=== PATIENT | male | born 1960 | race African-American/Black ===

== ENCOUNTER 2016-10-31 11:23 | Observation (INO) | payer OTHER ==
[2016-10-31 11:38] VITALS: BMI 29.5
[2016-10-31 12:12] LABS: BASOPHIL 0.8 % (0-2.0); EOSINOPHIL 0.8 % (0-4.5); MCH 29.8 pg (25.7-33.7); MCHC 32.8 g/dl (32.0-35.9); MEAN PLT VOLUME 8.1 fl (7.5-11.1); NEUTROPHILS 70.2 % (42.8-82.8); PLATELET COUNT 239 K/MM3 (134-434); RDW 12.7 % (11.9-15.9); WHITE BLOOD COUNT 4.9 K/mm3 (4.0-10.0)
[2016-10-31] MEDS ORDERED: ASPIRIN 325 MG TABLET PO ONE (12:15)
--- NOTE | 2016-10-31 12:19 | PDOC ---
History of Present Illness <Hanna Barajas - Last Filed: 10/31/16 12:53> <Eliezer Warren - Last Filed: 11/04/16 09:19> - General Chief Complaint: Chest Pain Stated Complaint: CHEST PAIN Time Seen by Provider: 10/31/16 11:40 Past History - Past Medical History HTN: Yes - Psycho/Social/Smoking Cessation Hx Suicidal Ideation: No Smoking History: Current some day smoker Have you smoked in the past 12 months: No Information on smoking cessation initiated: No <Hanna Barajas - Last Filed: 10/31/16 12:53> <Eliezer Warren - Last Filed: 11/04/16 09:19> - Past Medical History Allergies/Adverse Reactions: Allergies Allergy/AdvReac Type Severity Reaction Status Date / Time No Known Allergies Allergy Verified 10/31/16 11:32 Home Medications: Ambulatory Orders Aspirin Coated [Ecotrin -] 81 mg PO DAILY #30 tablet.ec 11/03/16 Atorvastatin Ca [Lipitor] 10 mg PO HS #30 tablet 11/03/16 Carvedilol [Coreg -] 12.5 mg PO BID #30 tablet 11/03/16 Valsartan [Diovan] 320 mg PO DAILY #30 tablet 11/03/16 - Vital Signs Last Vital Signs Temp Pulse Resp BP Pulse Ox 97.5 F L 73 19 124/81 97 11/03/16 18:00 11/03/16 18:00 11/03/16 18:00 11/03/16 18:00 11/03/16 09:00 Heart Score/ECG Review - History History: Highly suspicious - Electrocardiogram EKG: Normal - Age Age: 45-65 - Risk Factors Risk Factors Heart Score: Yes Hx Hypertension Based on the list above the patient has:: 1-2 risk factors - Troponin Troponin: </= normal limit - Score Heart Score - Total: 4 <Hanna Barajas - Last Filed: 10/31/16 12:53> <Eliezer Warren - Last Filed: 11/04/16 09:19> - ECG Intrepretation Comment:: 10/31/16 12:21 Twelve-lead EKG was performed and reviewed by me. There is normal sinus rhythm with a normal rate. The intervals are normal. There are no ST or T wave abnormalities. There is some LVH Impression: LVH, otherwise normal twelve-lead EKG (KarlHanna) ED Treatment Course - LABORATORY CBC & Chemistry Diagram: 10/31/16 11:55 10/31/16 11:55 <Hakeem BarajasCynthia - Last Filed: 10/31/16 12:53> - LABORATORY CBC & Chemistry Diagram: 11/03/16 05:35 11/03/16 05:35 <KelvinEliezer britton - Last Filed: 11/04/16 09:19> - ADDITIONAL ORDERS Additional order review: 10/31/16 11:55 RBC 4.23 MCV 91.0 MCHC 32.8 RDW 12.7 MPV 8.1 Neutrophils % 70.2 Lymphocytes % 20.4 Monocytes % 7.8 Eosinophils % 0.8 Basophils % 0.8 - Medications Given in the ED: ED Medications Discontinued Medications Generic Name Dose Route Start Last Admin Trade Name Freq PRN Reason Stop Dose Admin Aspirin 325 mg 10/31/16 12:15 10/31/16 12:36 Asa - PO 10/31/16 12:16 325 mg ONCE ONE Administration Aspirin 81 mg 11/01/16 10:00 11/03/16 15:28 Ecotrin - PO 81 mg DAILY RADHA Administration Atorvastatin Calcium 20 mg 10/31/16 22:00 11/01/16 22:36 Lipitor - PO 20 mg HS RADHA Administration Atorvastatin Calcium 10 mg 11/02/16 22:00 11/02/16 22:45 Lipitor - PO 10 mg HS RADHA Administration Carvedilol 6.25 mg 10/31/16 17:00 11/01/16 22:36 Coreg - PO 6.25 mg BID RADHA Administration Carvedilol 12.5 mg 11/01/16 17:20 11/01/16 17:30 Coreg - PO 11/01/16 17:21 12.5 mg ONCE ONE Administration Carvedilol 12.5 mg 11/02/16 10:00 11/03/16 15:28 Coreg - PO 12.5 mg BID RADHA Administration Clonidine 0.1 mg 10/31/16 12:21 10/31/16 12:32 Catapres - PO 10/31/16 12:22 0.1 mg ONCE ONE Administration Docusate Sodium 100 mg 10/31/16 22:00 11/03/16 15:28 Colace - PO 100 mg BID RADHA Administration Metoprolol Succinate 25 mg 10/31/16 17:00 10/31/16 17:21 Toprol Xl - PO 25 mg DAILY RADHA Administration Valsartan 80 mg 11/01/16 10:00 11/01/16 09:05 Diovan - PO 80 mg DAILY RADHA Administration Valsartan 160 mg 11/02/16 10:00 11/02/16 10:33 Diovan - PO 160 mg DAILY RADHA Administration Valsartan 320 mg 11/03/16 11:15 11/03/16 15:28 Diovan - PO 160 mg DAILY RADHA Administration Medical Decision Making <Hanna Barajas - Last Filed: 10/31/16 12:53> <Eliezer Warren - Last Filed: 11/04/16 09:19> - Medical Decision Making 10/31/16 12:16 55-year-old male, history of hypertension, non-compliant with medication, presenting with chest pain. Patient reports while at work this a.m, developed sudden onset, sharp, non-radiating chest pain that lasted for an hour and was worse with exertion. Also reports shortness of breath and nausea, vomiting that occurred w/ CP. States symptoms have since resolved. Patient states he had similar chest pain in 2010 and was admitted to [facility] and had negative stress test then. Denies palpitations, leg pain or swelling and no obvious risk factors for DVT/PE See exam CP Highly concerning for ACS RF age/HTN Neg stress in 2010 BP significantly elevated in ED (non-complaint w/ meds), otherwise stable w/ unremarkable exam -asa -BP management -ekg -cxr -labs -m/l admit to Obs for am stress given heart score 10/31/16 12:22 10/31/16 12:49 EKG w/ LVH. CXR and labs negative. Will contact hospitalist and admit 10/31/16 12:53 Case d/w hospitalist and pt admitted (Hanna Barajas) 11/04/16 09:19 The patient was seen and evaluated in conjunction with BOYD Angeles under my direct supervision, ancillary studies were reviewed. I agree with the plan as outlined by OBYD Barajas . (Eliezer Warren) *DC/Admit/Observation/Transfer - Discharge Dispostion Admit: Yes <Hanna Barajas - Last Filed: 10/31/16 12:53> <Eliezer Warren - Last Filed: 11/04/16 09:19> Diagnosis at time of Disposition: Chest pain Qualifiers: Chest pain type: unspecified Qualified Code(s): R07.9 - Chest pain, unspecified - Discharge Dispostion Disposition: HOME Condition at time of disposition: Good - Prescriptions - Referrals Addendum entered and electronically signed by Hanna Barajas PA 02/10/17 17:22 : Physical Exam Vital Sings: Vital Signs Temperature 97.5 F L 11/03/16 18:00 Pulse Rate 73 11/03/16 18:00 Respiratory Rate 19 11/03/16 18:00 Blood Pressure 124/81 11/03/16 18:00 O2 Sat by Pulse Oximetry (%) 97 11/03/16 09:00 Constitutional: Yes: Well Nourished. No: No Distress Eyes: Yes: EOM Intact HENT: Yes: WNL Neck: Yes: Supple Cardiovascular: Yes: Regular Rate and Rhythm, S1, S2 Respiratory: Yes: CTA Bilaterally Gastrointestinal: Yes: Soft. No: Tenderness (L) Integumentary: Yes: WNL Neurological: Yes: Alert, Oriented Labs: CBC, BMP 10/31/16 11:55 10/31/16 11:55 Addendum entered and electronically signed by Hanna Barajas PA 02/10/17 17:24 : Progress Note - Progress Note Progress Note: GENERAL/CONSTITUTIONAL: no f/c or malaise HEAD, EYES, EARS, NOSE AND THROAT: [No ear pain or discharge. No sore throat.] CARDIOVASCULAR: +chest pain, +sob RESPIRATORY: [No cough, wheezing, or hemoptysis.] GASTROINTESTINAL: [+nausea and vomiting, diarrhea or constipation. No rectal bleeding.] GENITOURINARY: [No dysuria, frequency, or change in urination.] MUSCULOSKELETAL: [No joint or muscle swelling or pain. No neck or back pain.] SKIN AND BREASTS: [No rash or easy bruising.] NEUROLOGIC: [No headache, vertigo, loss of consciousness, or loss of sensation.] PSYCHIATRIC: [No depression or anxiety.] ENDOCRINE: [No increased thirst. No abnormal weight change.] HEMATOLOGIC/LYMPHATIC: [No anemia, easy bleeding, or history of blood clots.] ALLERGIC/IMMUNOLOGIC: [No hives or skin allergy. No latex allergy.]
[2016-10-31] MEDS ORDERED: cloNIDine HCL 0.1 MG TABLET PO ONE (12:21)
[2016-10-31] MEDS ORDERED: cloNIDine HCL 0.1 MG TABLET ONE (12:22)
[2016-10-31 12:28] LABS: ANION GAP 9 (8-16); BILIRUBIN,TOTAL 0.3 mg/dL (0.2-1.0); CALCIUM 8.8 mg/dL (8.5-10.1); CO2 29 mmol/L (21-32); CREATININE 0.9 mg/dL (0.7-1.3); GLUCOSE,RANDOM 79 mg/dL (74-106); SGOT/AST 49 U/L (15-37); SGPT/ALT 39 U/L (12-78); TOT PROT 8.1 g/dl (6.4-8.2)
[2016-10-31 12:30] LABS: ALK PHOS 81 U/L (45-117); TROPONIN I < 0.02 ng/ml (0.00-0.05)
[2016-10-31] MEDS ORDERED: ASPIRIN 325 MG ENTERIC COATED TABLET (FP) ONE (12:35)
[2016-10-31] MEDS ORDERED: ACETAMINOPHEN 325 MG TABLET (FP) PO PRN (16:44)
--- NOTE | 2016-10-31 16:48 | HP ---
CHIEF COMPLAINT: Chest pain PCP: [facility] HISTORY OF PRESENT ILLNESS: This is a 55 year old male with a history of HTN and HLD. He does not recall the names of his medications, but states that he stopped taking them about 8 months ago after running out. Today while working, he experienced sudden onset of chest "pressure" with SOB. He vomited twice and was diaphoretic. He does note cough productive of yellow phlegm for the past two days. He denies orthopnea, PND, LE edema, or decreased ET. He reports a negative exercise stress test in 2010. 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 Smoking: Occasional Alcohol: Occasional Drugs: None Family History: Significant for DM on father's side; no history of CAD or early Allergies No Known Allergies Allergy (Verified 10/31/16 11:32) HOME MEDICATIONS: Home Medications Medication Instructions Recorded NK [No Known Home Medication] 10/31/16 REVIEW OF SYSTEMS CONSTITUTIONAL: Absent: fever, chills, diaphoresis, generalized weakness, malaise, loss of appetite, weight change HEENT: Absent: rhinorrhea, nasal congestion, throat pain, throat swelling, difficulty swallowing, mouth swelling, ear pain, eye pain, visual changes CARDIOVASCULAR: See HPI RESPIRATORY: Cough productive of yellow sputum Absent: dyspnea with exertion, orthopnea, wheezing, stridor, hemoptysis GASTROINTESTINAL: Vomiting x 2 Absent: abdominal pain, abdominal distension, diarrhea, constipation, melena, hematochezia GENITOURINARY: Absent: dysuria, frequency, urgency, hesitancy, hematuria, flank pain, genital pain MUSCULOSKELETAL: Absent: myalgia, arthralgia, joint swelling, back pain, neck pain SKIN: Absent: rash, itching, pallor HEMATOLOGIC/IMMUNOLOGIC: Absent: easy bleeding, easy bruising, lymphadenopathy, frequent infections ENDOCRINE: Absent: unexplained weight gain, unexplained weight loss, heat intolerance, cold intolerance NEUROLOGIC: Absent: headache, focal weakness or paresthesias, dizziness, unsteady gait, seizure, mental status changes, bladder or bowel incontinence PSYCHIATRIC: Absent: anxiety, depression, suicidal or homicidal ideation, hallucinations. PHYSICAL EXAMINATION Vital Signs - 24 hr 10/31/16 10/31/16 10/31/16 13:46 14:38 15:46 Temperature 98 F Pulse Rate 86 Pulse Rate [ 75 71 Apical] Respiratory 14 18 18 Rate Blood Pressure 171/98 Blood Pressure 146/90 123/67 [Left Arm] O2 Sat by Pulse 99 97 97 Oximetry (%) GENERAL: Awake, alert, and fully oriented, in no acute distress. HEAD: Normal with no signs of trauma. EYES: Pupils equal, round and reactive to light, extraocular movements intact, sclera anicteric, conjunctiva clear. No lid lag. EARS, NOSE, THROAT: Ears normal, nares patent, oropharynx clear without exudates. Moist mucous membranes. NECK: Normal range of motion, supple without lymphadenopathy, JVD, or masses. LUNGS: Breath sounds equal, clear to auscultation bilaterally. No wheezes, and no crackles. No accessory muscle use. HEART: Regular rate and rhythm, normal S1 and S2 without murmur, rub or gallop. ABDOMEN: Soft, nontender, not distended, normoactive bowel sounds, no guarding, no rebound, no masses. No hepatomegaly or splenomegaly. MUSCULOSKELETAL: Normal range of motion at all joints. No bony deformities or tenderness. No CVA tenderness. UPPER EXTREMITIES: 2+ pulses, warm, well-perfused. No cyanosis. No clubbing. Cap refill <2 seconds. No peripheral edema. LOWER EXTREMITIES: 2+ pulses, warm, well-perfused. No calf tenderness. No peripheral edema. NEUROLOGICAL: Cranial nerves II-XII intact. Normal speech. Normal gait. PSYCHIATRIC: Cooperative. Good eye contact. Appropriate mood and affect. SKIN: Warm, dry, normal turgor, no rashes or lesions noted. ASSESSMENT/PLAN: 55 year old male placed in observation for rule out OR Problem List - Problem (1) Chest pain Assessment/Plan: -Monitor on telemetry -Given ASA 325mg in ED, continue 81mg daily -Serial troponins to rule out OR -Cardiology evaluation requested Code(s): R07.9 - CHEST PAIN, UNSPECIFIED Qualifiers: Chest pain type: unspecified Qualified Code(s): R07.9 - Chest pain, unspecified (2) Hypertension Assessment/Plan: -Patient does not recall usual meds -Was given clonidine 0.1mg in ED -Start Toprol XL 25mg daily Code(s): I10 - ESSENTIAL (PRIMARY) HYPERTENSION (3) Hyperlipidemia Assessment/Plan: -Patient does not recall usual meds -Check lipid profile -Start Atorvastatin 20mg hs Code(s): E78.5 - HYPERLIPIDEMIA, UNSPECIFIED (4) DVT prophylaxis Assessment/Plan: -Low risk (short expected length of stay) -Early ambulation Code(s): [id number] - Visit type - Emergency Visit Emergency Visit: Yes ED Registration Date: 10/31/16 Care time: The patient presented to the Emergency Department on the above date and was hospitalized for further evaluation of their emergent condition. - New Patient This patient is new to me today: Yes Date on this admission: 10/31/16 - Critical Care Critical Care patient: No
[2016-10-31] MEDS ORDERED: METOPROLOL SUCCINATE 25 MG TAB.SR.24H (FP) PO SCH (17:00)
--- NOTE | 2016-10-31 17:08 | CON.CARD ---
Consult Consult Specialty:: Cardiology Referred by:: Hospitalist Medicine Reason for Consultation:: HTN urgency - History of Present Illness Chief Complaint: Chest pain, dyspnea History of Present Illness: This is a 55 year old male with a history of HTN and HLD. off meds for 8 months after running out. Today while working, he experienced sudden onset of chest "pressure" with SOB. He vomited twice and was diaphoretic all since resolved. He denies orthopnea, PND, LE edema, or decreased ET. - History Source History Provided By: Patient Limitations to Obtaining History: No Limitations - Past Medical History Cardio/Vascular: Yes: HTN, Hyperlipdemia - Alcohol/Substance Use Hx Alcohol Use: No - Smoking History Smoking history: Current some day smoker Have you smoked in the past 12 months: Yes Aproximately how many cigarettes per day: 2 Home Medications - Allergies Allergies/Adverse Reactions: Allergies Allergy/AdvReac Type Severity Reaction Status Date / Time No Known Allergies Allergy Verified 10/31/16 11:32 - Home Medications Home Medications: Ambulatory Orders NK [No Known Home Medication] 10/31/16 Review of Systems - Review of Systems Cardiovascular: reports: Chest Pain, Shortness of Breath Vital Signs: Vital Signs Temperature 98 F 10/31/16 13:46 Pulse Rate 71 10/31/16 15:46 Respiratory Rate 18 10/31/16 15:46 Blood Pressure 123/67 10/31/16 15:46 O2 Sat by Pulse Oximetry (%) 97 10/31/16 15:46 Constitutional: Yes: No Distress, Calm Neck: Yes: Supple Respiratory: Yes: Regular, CTA Bilaterally Gastrointestinal: Yes: Normal Bowel Sounds, Soft Cardiovascular: Yes: Regular Rate and Rhythm JVD: No Carotid Bruit: No Heart Sounds: Yes: S1, S2 Edema: No - Other Data NSR @ 89 LAE, LVH Imaging - Results X-ray: Report Reviewed (NAD) Problem List - Problems (1) Chest pain Code(s): R07.9 - CHEST PAIN, UNSPECIFIED Qualifiers: Chest pain type: unspecified Qualified Code(s): R07.9 - Chest pain, unspecified (2) Hyperlipidemia Code(s): E78.5 - HYPERLIPIDEMIA, UNSPECIFIED Qualifiers: Hyperlipidemia type: pure hypercholesterolemia Qualified Code(s): E78.0 - Pure hypercholesterolemia (3) Hypertensive urgency Code(s): I10 - ESSENTIAL (PRIMARY) HYPERTENSION (4) Noncompliance with medication regimen Code(s): Z91.14 - PATIENT'S OTHER NONCOMPLIANCE WITH MEDICATION REGIMEN Assessment/Plan 1. Chest pain syndrome 2. Hypertensive urgency 3. Hyperlipidemia 4. Medication noncompliance P:1. Ruling out for MA, check TSH, BNP, lipid profile 2. Start Diovan 80 qd and carvedilol 6.25 bid with uptitration as tolerated 3. Stress echocardiogram Thursday to r/o structural heart disease 4. Thank you for consultative opportunity
[2016-10-31] MEDS: CARVEDILOL 6.25 MG TABLET (FP) PO SCH ×2 (17:41→22:10)
[2016-10-31 19:37] LABS: TROPONIN I < 0.02 ng/ml (0.00-0.05)
[2016-10-31] MEDS: ATORVASTATIN CA 20 MG TABLET (FP) PO SCH (22:10)
[2016-10-31] MEDS: DOCUSATE SODIUM 100 MG CAPSULE (FP) PO SCH (22:10)
[2016-11-01 07:54] LABS: BASOPHIL 0.7 % (0-2.0); EOSINOPHIL 1.9 % (0-4.5); MCH 30.6 pg (25.7-33.7); MCHC 33.4 g/dl (32.0-35.9); MEAN CELL VOLUME 91.7 fl (80-96); MEAN PLT VOLUME 8.5 fl (7.5-11.1); PLATELET COUNT 221 K/MM3 (134-434); RDW 12.4 % (11.9-15.9); WHITE BLOOD COUNT 4.2 K/mm3 (4.0-10.0)
[2016-11-01 08:19] LABS: ALBUMIN 3.5 g/dl (3.4-5.0); ANION GAP 9 (8-16); BILIRUBIN,TOTAL 0.8 mg/dL (0.2-1.0); CALCIUM 9.1 mg/dL (8.5-10.1); CO2 27 mmol/L (21-32); CREATININE 0.8 mg/dL (0.7-1.3); GLUCOSE,RANDOM 85 mg/dL (74-106); MAGNESIUM 1.9 mg/dL (1.8-2.4); SGOT/AST 32 U/L (15-37); SGPT/ALT 30 U/L (12-78); TOT PROT 6.8 g/dl (6.4-8.2)
[2016-11-01 08:22] LABS: ALK PHOS 69 U/L (45-117); TROPONIN I < 0.02 ng/ml (0.00-0.05)
[2016-11-01] MEDS: CARVEDILOL 6.25 MG TABLET (FP) PO SCH ×2 (09:05→22:36)
[2016-11-01] MEDS: ASPIRIN COATED 81 MG TABLET.EC PO SCH (09:05)
[2016-11-01] MEDS: DOCUSATE SODIUM 100 MG CAPSULE (FP) PO SCH ×2 (09:05→22:36)
[2016-11-01 09:21] LABS: THYROID STIMULATING HORMONE 1.59 uIU/ml (0.358-3.74)
[2016-11-01] MEDS ORDERED: VALSARTAN 80 MG TABLET (UD) PO SCH (10:00)
--- NOTE | 2016-11-01 12:14 | PN ---
Physical Exam: SUBJECTIVE: Patient seen and examined. He continues to have slight midsternal chest "tightness". Rates pain 2/10 with inspiration. He denies shortness of breath, and is tolerating room air. He further denies jaw pain or arm pain. OBJECTIVE: Vital Signs Period Temp Pulse Resp BP Sys/Mclaughlin Pulse Ox Last 24 Hr 97.7 F-98.4 F 67-86 14-18 123-171/67-105 97-100 GENERAL: The patient is awake, alert, and fully oriented, in no acute distress. HEAD: Normal with no signs of trauma. EYES: PERRL, extraocular movements intact, sclera anicteric, conjunctiva clear. No ptosis. ENT: Ears normal, nares patent, oropharynx clear without exudates, moist mucous membranes. NECK: Trachea midline, full range of motion, supple. LUNGS: Breath sounds equal, clear to auscultation bilaterally, no wheezes, no crackles, no accessory muscle use. 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 EXTREMITIES: 2+ pulses, warm, well-perfused, no edema. NEUROLOGICAL: Normal speech, gait not observed. PSYCH: Normal mood, normal affect. SKIN: Warm, dry, normal turgor, no rashes or lesions noted Laboratory Results - last 24 hr 10/31/16 10/31/16 11/01/16 18:00 18:00 05:55 WBC RBC Hgb Hct MCV MCHC RDW Plt Count MPV Neutrophils % Lymphocytes % Monocytes % Eosinophils % Basophils % Sodium 141 Potassium 4.0 Chloride 105 Carbon Dioxide 27 Anion Gap 9 BUN 15 D Creatinine 0.8 Creat Clearance w eGFR > 60 Random Glucose 85 Hemoglobin A1c % Calcium 9.1 Magnesium 1.9 Total Bilirubin 0.8 D AST 32 D ALT 30 D Alkaline Phosphatase 69 Creatine Kinase 813 H 795 H Creatine Kinase Index 0.9 CK-MB (CK-2) 7.369 H CK-MB (CK-2) Rel Index Cancelled Troponin I < 0.02 < 0.02 B-Natriuretic Peptide Total Protein 6.8 Albumin 3.5 Triglycerides Cholesterol Total LDL Cholesterol HDL Cholesterol TSH 11/01/16 11/01/16 11/01/16 05:55 05:55 05:55 WBC 4.2 RBC 3.87 L Hgb 11.9 Hct 35.5 MCV 91.7 MCHC 33.4 RDW 12.4 Plt Count 221 MPV 8.5 Neutrophils % 58.0 Lymphocytes % 28.9 D Monocytes % 10.5 H Eosinophils % 1.9 D Basophils % 0.7 Sodium Potassium Chloride Carbon Dioxide Anion Gap BUN Creatinine Creat Clearance w eGFR Random Glucose Hemoglobin A1c % 5.4 Calcium Magnesium Total Bilirubin AST ALT Alkaline Phosphatase Creatine Kinase Creatine Kinase Index CK-MB (CK-2) CK-MB (CK-2) Rel Index Troponin I B-Natriuretic Peptide Total Protein Albumin Triglycerides 68 Cholesterol 188 Total LDL Cholesterol 106 H HDL Cholesterol 79 H TSH 1.59 11/01/16 11/01/16 05:55 05:55 WBC RBC Hgb Hct MCV MCHC RDW Plt Count MPV Neutrophils % Lymphocytes % Monocytes % Eosinophils % Basophils % Sodium Potassium Chloride Carbon Dioxide Anion Gap BUN Creatinine Creat Clearance w eGFR Random Glucose Hemoglobin A1c % Calcium Magnesium Total Bilirubin AST ALT Alkaline Phosphatase Creatine Kinase Creatine Kinase Index CK-MB (CK-2) CK-MB (CK-2) Rel Index Cancelled Troponin I B-Natriuretic Peptide 73.10 Total Protein Albumin Triglycerides Cholesterol Total LDL Cholesterol HDL Cholesterol TSH Active Medications Generic Name Dose Route Start Last Admin Trade Name Freq PRN Reason Stop Dose Admin Acetaminophen 650 mg 10/31/16 16:44 Tylenol - PO Q6H PRN FEVER OR PAIN Aspirin 81 mg 11/01/16 10:00 11/01/16 09:05 Ecotrin - PO 81 mg DAILY RADHA Administration Atorvastatin Calcium 20 mg 10/31/16 22:00 10/31/16 22:10 Lipitor - PO 20 mg HS RADHA Administration Carvedilol 6.25 mg 10/31/16 17:00 11/01/16 09:05 Coreg - PO 6.25 mg BID RADHA Administration Docusate Sodium 100 mg 10/31/16 22:00 11/01/16 09:05 Colace - PO 100 mg BID RADHA Administration Valsartan 80 mg 11/01/16 10:00 11/01/16 09:05 Diovan - PO 80 mg DAILY RADHA Administration ASSESSMENT/PLAN: Patient is a 55 year old male with a significant past medical history of hypertension and hyperlipidemia. He presented to the ED on 10/31/2016 with complaints of acute non radiating chest pain (rated pain as 10/10) that lasted for approximately one hour and that worsened with exertion and with deep inspiration. He also reports shortness of breath with nausea and vomiting that occurred with the chest pain. He denies any palpitations. In 2010 he was admitted to [facility] with similar presenting chest pain and was reported to have had a negative stress test. During today's exam, he rates his mid sternal chest pain as much improved but still having discomfort when taking in a deep breath. He rates the chest pain as 2/10. He denies any other discomfort. Cardiology: Chest Pain Syndrome - acute Rule out ACS Assessment/Plan: Chest pain non reproducible on palpation, but has improved Continue to monitor on tele, currently in sinus rhythm 80s. In the ED he was given ASA 325mg, now on ASA 81mg daily Troponins x 3 negative Will order Echo for Thursday Cardiology following Hypertensive urgency - acute Assessment/Plan: Patient admits to non compliance with cardiac meds for a few months Now on Carvedilol 6.25 PO BID and Diovan 80mg daily Remains hypertensive Will monitor BP and titrate meds as needed Hyperlipidemia - chronic Assessment/Plan: Lipid panel reviewed, was started on Lipitor 20mg Pulmonary: Shortness of breath - resolved Assessment/Plan: Tolerating room air, oxygen saturation on room air high 90s Chest xray 10/31/16 with no acute pathology GI: Nausea/Vomiting - resolved Assessment/Plan: Tolerating his meals, abdomen non distended Denies constipation, pain or tenderness F.E.N. Fluids: tolerating PO, no IVF Electrolytes: within normal limits Nutrition: Low sodium Prophylaxis: GI: colace BID DVT: ambulatory patient, low risk Disposition: Requires inpatient observation. Full Code. Visit type - Emergency Visit Emergency Visit: Yes ED Registration Date: 10/31/16 Care time: The patient presented to the Emergency Department on the above date and was hospitalized for further evaluation of their emergent condition. - New Patient This patient is new to me today: Yes Date on this admission: 11/01/16 - Critical Care Critical Care patient: No - Discharge Referral Referred to [facility] Med P.C.: No
[2016-11-01] MEDS ORDERED: CARVEDILOL 12.5 MG TABLET (FP) PO ONE (17:20)
[2016-11-01] MEDS: ATORVASTATIN CA 20 MG TABLET (FP) PO SCH (22:36)
[2016-11-02 08:14] LABS: BASOPHIL 0.5 % (0-2.0); EOSINOPHIL 2.1 % (0-4.5); MCH 30.4 pg (25.7-33.7); MCHC 33.5 g/dl (32.0-35.9); MEAN CELL VOLUME 90.8 fl (80-96); MEAN PLT VOLUME 8.5 fl (7.5-11.1); NEUTROPHILS 51.4 % (42.8-82.8); PLATELET COUNT 226 K/MM3 (134-434); RDW 12.3 % (11.9-15.9); WHITE BLOOD COUNT 4.2 K/mm3 (4.0-10.0)
--- NOTE | 2016-11-02 08:17 | PN ---
Progress Note, Physician History of Present Illness: Chest pain and dyspnea subsided, still hypertensive. - Current Medication List Current Medications: Active Medications Acetaminophen (Tylenol -) 650 mg PO Q6H PRN PRN Reason: FEVER OR PAIN Aspirin (Ecotrin -) 81 mg PO DAILY [facility] Last Admin: 11/01/16 09:05 Dose: 81 mg Atorvastatin Calcium (Lipitor -) 20 mg PO HS [facility] Last Admin: 11/01/16 22:36 Dose: 20 mg Carvedilol (Coreg -) 6.25 mg PO BID [facility] Docusate Sodium (Colace -) 100 mg PO BID [facility] Last Admin: 11/01/16 22:36 Dose: 100 mg Valsartan (Diovan -) 80 mg PO DAILY [facility] Last Admin: 11/01/16 09:05 Dose: 80 mg - Objective Vital Signs: Vital Signs Temperature 98.1 F 11/02/16 01:42 Pulse Rate 66 11/02/16 06:00 Respiratory Rate 20 11/02/16 06:00 Blood Pressure 175/101 11/02/16 06:00 O2 Sat by Pulse Oximetry (%) 100 11/01/16 21:00 Constitutional: Yes: No Distress, Calm Neck: Yes: Supple Cardiovascular: Yes: Regular Rate and Rhythm Respiratory: Yes: Regular, CTA Bilaterally Gastrointestinal: Yes: Normal Bowel Sounds, Soft Edema: No Problem List - Problems (1) Chest pain Code(s): R07.9 - CHEST PAIN, UNSPECIFIED Qualifiers: Chest pain type: unspecified Qualified Code(s): R07.9 - Chest pain, unspecified (2) Hyperlipidemia Code(s): E78.5 - HYPERLIPIDEMIA, UNSPECIFIED Qualifiers: Hyperlipidemia type: pure hypercholesterolemia Qualified Code(s): E78.0 - Pure hypercholesterolemia (3) Hypertensive urgency Code(s): I10 - ESSENTIAL (PRIMARY) HYPERTENSION (4) Noncompliance with medication regimen Code(s): Z91.14 - PATIENT'S OTHER NONCOMPLIANCE WITH MEDICATION REGIMEN Assessment/Plan 1. Chest pain syndrome 2. Hypertensive urgency 3. Hyperlipidemia 4. Medication noncompliance P:1. Ruled out for [place] 2. Increase Diovan 160 qd and carvedilol 12.5 bid with uptitration as tolerated , decrease Lipitor 10 qhs 3. Stress echocardiogram Thursday to r/o structural heart disease
[2016-11-02 08:57] LABS: ALBUMIN 3.5 g/dl (3.4-5.0); ALK PHOS 68 U/L (45-117); ANION GAP 10 (8-16); BILIRUBIN,TOTAL 0.8 mg/dL (0.2-1.0); CALCIUM 8.9 mg/dL (8.5-10.1); CO2 26 mmol/L (21-32); CREATININE 0.8 mg/dL (0.7-1.3); GLUCOSE,RANDOM 81 mg/dL (74-106); SGOT/AST 30 U/L (15-37); SGPT/ALT 26 U/L (12-78); TOT PROT 6.9 g/dl (6.4-8.2)
[2016-11-02] MEDS ORDERED: VALSARTAN 160 MG TABLET (UD) PO SCH (10:00)
[2016-11-02] MEDS ORDERED: CARVEDILOL 6.25 MG TABLET (FP) PO SCH (10:00)
[2016-11-02] MEDS: DOCUSATE SODIUM 100 MG CAPSULE (FP) PO SCH ×2 (10:32→22:45)
[2016-11-02] MEDS: ASPIRIN COATED 81 MG TABLET.EC PO SCH (10:33)
[2016-11-02] MEDS: CARVEDILOL 12.5 MG TABLET (FP) PO SCH ×2 (10:33→22:44)
--- NOTE | 2016-11-02 11:01 | PN ---
Physical Exam: SUBJECTIVE: Patient seen and examined at the bedside. He denies any chest pressure, or chest discomfort. States chest discomfort he came in with is now resolved. Further, he denies any shortness of breath. He is noted to be hypertensive overnight (170s/100s). Last night I ordered a stat dose of Coreq 12.5 x 1 but despite that his BP was elevated this morning. Meds titrated this morning by Cardiology. OBJECTIVE: GENERAL: The patient is awake, alert, and fully oriented, in no acute distress. HEAD: Normal with no signs of trauma. EYES: PERRL, extraocular movements intact, sclera anicteric, conjunctiva clear. No ptosis. ENT: Ears normal, nares patent, oropharynx clear without exudates, moist mucous membranes. NECK: Trachea midline, full range of motion, supple. LUNGS: Breath sounds equal, clear to auscultation bilaterally, no wheezes, no crackles, no accessory muscle use. HEART: Sinus rhythm 80s on playground monitor ABDOMEN: Soft, nontender, nondistended, normoactive bowel sounds, no guarding, no rebound, no hepatosplenomegaly, no masses. EXTREMITIES: 2+ pulses, warm, well-perfused, no edema. NEUROLOGICAL: Normal speech, gait not observed. PSYCH: Normal mood, normal affect. SKIN: Warm, dry, normal turgor, no rashes or lesions noted Vital Signs Period Temp Pulse Resp BP Sys/Mclaughlin Pulse Ox Last 24 Hr 98.1 F-98.2 F 63-74 18-20 141-175/90-109 100 Laboratory Results - last 24 hr 11/02/16 11/02/16 05:50 05:50 WBC 4.2 RBC 3.99 L Hgb 12.1 Hct 36.2 MCV 90.8 MCHC 33.5 RDW 12.3 Plt Count 226 MPV 8.5 Neutrophils % 51.4 Lymphocytes % 34.8 D Monocytes % 11.2 H Eosinophils % 2.1 Basophils % 0.5 Sodium 139 Potassium 3.9 Chloride 103 Carbon Dioxide 26 Anion Gap 10 BUN 13 Creatinine 0.8 Creat Clearance w eGFR > 60 Random Glucose 81 Calcium 8.9 Total Bilirubin 0.8 AST 30 ALT 26 Alkaline Phosphatase 68 Total Protein 6.9 Albumin 3.5 Active Medications Generic Name Dose Route Start Last Admin Trade Name Freq PRN Reason Stop Dose Admin Acetaminophen 650 mg 10/31/16 16:44 Tylenol - PO Q6H PRN FEVER OR PAIN Aspirin 81 mg 11/01/16 10:00 11/02/16 10:33 Ecotrin - PO 81 mg DAILY RADHA Administration Atorvastatin Calcium 10 mg 11/02/16 22:00 Lipitor - PO HS [facility] Carvedilol 12.5 mg 11/02/16 10:00 11/02/16 10:33 Coreg - PO 12.5 mg BID RADHA Administration Docusate Sodium 100 mg 10/31/16 22:00 11/02/16 10:32 Colace - PO 100 mg BID RADHA Administration Valsartan 160 mg 11/02/16 10:00 11/02/16 10:33 Diovan - PO 160 mg DAILY RADHA Administration ASSESSMENT/PLAN: Patient is a 55 year old male with a significant past medical history of hypertension and hyperlipidemia. He presented to the ED on 10/31/2016 with complaints of acute non radiating chest pain (rated pain as 10/10) that lasted for approximately one hour and that worsened with exertion and with deep inspiration. He also reports shortness of breath with nausea and vomiting that occurred with the chest pain. He denies any palpitations. He also has a history of medication non compliance. He reports not taking his prescribed cardiac medications for apx 8 months. In 2010 he was admitted to [facility] with similar presenting chest pain and was reported to have had a negative stress test. During today's exam, he states his chest pain/discomfort has resolved. Cardiology: Chest Pain Syndrome - resolved Assessment/Plan: Continue to monitor on tele, currently in sinus rhythm He is on daily ASA 81mg Troponins x 3 negative For stress echo tomorrow, NPO at midnight Cardiology following Hypertensive urgency - acute Assessment/Plan: Patient admits to non compliance with cardiac meds for a few months He was hypertensive yesterday evening and given an extra dose of Carvedilol 12.5 x 1 but remained hypertensive, asymptomatic Sole Buffer titrated his cardiac medications as follows: Carvedilol 12.5 PO BID and Diovan 160 mg daily Will monitor his BPs Hyperlipidemia - chronic Assessment/Plan: Lipid panel reviewed, was started on Lipitor Pulmonary: Shortness of breath - resolved Assessment/Plan: Tolerating room air, oxygen saturation on room air high 90s Chest xray 10/31/16 with no acute pathology GI: Nausea/Vomiting - resolved Assessment/Plan: Tolerating his meals, abdomen non distended Denies constipation, pain or tenderness F.E.N. Fluids: tolerating PO, no IVF Electrolytes: within normal limits Nutrition: Low sodium Prophylaxis: GI: colace BID DVT: ambulatory patient, low risk Disposition: Requires inpatient observation. Anticipate discharge tomorrow after stress echo is read with close Cardiology follow up. Full Code. Visit type - Emergency Visit Emergency Visit: Yes ED Registration Date: 10/31/16 Care time: The patient presented to the Emergency Department on the above date and was hospitalized for further evaluation of their emergent condition. - New Patient This patient is new to me today: No - Critical Care Critical Care patient: No - Discharge Referral Referred to [facility] Med P.C.: No
[2016-11-02] MEDS ORDERED: ATORVASTATIN CA 10 MG TABLET (FP) PO SCH (22:00)
[2016-11-03 07:07] LABS: BASOPHIL 0.6 % (0-2.0); EOSINOPHIL 1.8 % (0-4.5); MCH 30.1 pg (25.7-33.7); MCHC 33.2 g/dl (32.0-35.9); MEAN CELL VOLUME 90.7 fl (80-96); MEAN PLT VOLUME 8.5 fl (7.5-11.1); NEUTROPHILS 51.3 % (42.8-82.8); PLATELET COUNT 229 K/MM3 (134-434); RDW 12.2 % (11.9-15.9); WHITE BLOOD COUNT 3.9 K/mm3 (4.0-10.0)
[2016-11-03 07:46] LABS: ALBUMIN 3.5 g/dl (3.4-5.0); ANION GAP 10 (8-16); CALCIUM 8.9 mg/dL (8.5-10.1); CO2 27 mmol/L (21-32); CREATININE 0.9 mg/dL (0.7-1.3); GLUCOSE,RANDOM 80 mg/dL (74-106); SGOT/AST 28 U/L (15-37); SGPT/ALT 25 U/L (12-78)
[2016-11-03 07:49] LABS: ALK PHOS 67 U/L (45-117); BILIRUBIN,TOTAL 0.7 mg/dL (0.2-1.0); TOT PROT 6.9 g/dl (6.4-8.2)
--- NOTE | 2016-11-03 10:12 | PN ---
Progress Note, Physician History of Present Illness: Chest pain and dyspnea subsided, still hypertensive. - Current Medication List Current Medications: Active Medications Acetaminophen (Tylenol -) 650 mg PO Q6H PRN PRN Reason: FEVER OR PAIN Aspirin (Ecotrin -) 81 mg PO DAILY [facility] Last Admin: 11/02/16 10:33 Dose: 81 mg Atorvastatin Calcium (Lipitor -) 10 mg PO HS [facility] Last Admin: 11/02/16 22:45 Dose: 10 mg Carvedilol (Coreg -) 12.5 mg PO BID [facility] Last Admin: 11/02/16 22:44 Dose: 12.5 mg Docusate Sodium (Colace -) 100 mg PO BID [facility] Last Admin: 11/02/16 22:45 Dose: 100 mg Valsartan (Diovan -) 160 mg PO DAILY [facility] Last Admin: 11/02/16 10:33 Dose: 160 mg - Objective Vital Signs: Vital Signs Temperature 97.9 F 11/03/16 02:05 Pulse Rate 66 11/03/16 06:00 Respiratory Rate 20 11/03/16 06:00 Blood Pressure 158/94 11/03/16 06:00 O2 Sat by Pulse Oximetry (%) 97 11/02/16 20:39 Constitutional: Yes: No Distress, Calm Neck: Yes: Supple Cardiovascular: Yes: Regular Rate and Rhythm Respiratory: Yes: Regular, CTA Bilaterally Gastrointestinal: Yes: Normal Bowel Sounds, Soft Edema: No Labs: CBC, BMP 11/03/16 05:35 11/03/16 05:35 Problem List - Problems (1) Chest pain Code(s): R07.9 - CHEST PAIN, UNSPECIFIED Qualifiers: Chest pain type: unspecified Qualified Code(s): R07.9 - Chest pain, unspecified (2) Hyperlipidemia Code(s): E78.5 - HYPERLIPIDEMIA, UNSPECIFIED Qualifiers: Hyperlipidemia type: pure hypercholesterolemia Qualified Code(s): E78.0 - Pure hypercholesterolemia (3) Hypertensive urgency Code(s): I10 - ESSENTIAL (PRIMARY) HYPERTENSION (4) Noncompliance with medication regimen Code(s): Z91.14 - PATIENT'S OTHER NONCOMPLIANCE WITH MEDICATION REGIMEN Assessment/Plan 1. Chest pain syndrome 2. Hypertensive urgency improved 3. Hyperlipidemia 4. Medication noncompliance P:1. Ruled out for [place] 2. Increase Diovan 320 qd and carvedilol 12.5 bid with uptitration as tolerated , decrease Lipitor 10 qhs 3. Stress echocardiogram Thursday to r/o structural heart disease 4. Further recommendations to follow
[2016-11-03] MEDS ORDERED: VALSARTAN 160 MG TABLET (UD) PO SCH (11:15)
--- NOTE | 2016-11-03 13:54 | PN ---
Physical Exam: SUBJECTIVE: Patient seen and examined. He denies any chest pain or shortness of breath. No overnight events. Remains hypertensive. Medications titrated by practical nursing instructor. OBJECTIVE: Vital Signs Period Temp Pulse Resp BP Sys/Mclaughlin Pulse Ox Last 24 Hr 97.9 F-98.2 F 60-67 20-20 146-158/87-99 97 GENERAL: The patient is awake, alert, and fully oriented, in no acute distress. HEAD: Normal with no signs of trauma. EYES: PERRL, extraocular movements intact, sclera anicteric, conjunctiva clear. No ptosis. ENT: Ears normal, nares patent, oropharynx clear without exudates, moist mucous membranes. NECK: Trachea midline, full range of motion, supple. LUNGS: Breath sounds equal, clear to auscultation bilaterally, no wheezes, no crackles, no accessory muscle use. HEART: Sinus rhythm 80s on night monitor ABDOMEN: Soft, nontender, nondistended, normoactive bowel sounds, no guarding, no rebound, no hepatosplenomegaly, no masses. EXTREMITIES: 2+ pulses, warm, well-perfused, no edema. NEUROLOGICAL: Normal speech, gait not observed. PSYCH: Normal mood, normal affect. SKIN: Warm, dry, normal turgor, no rashes or lesions noted Laboratory Results - last 24 hr 11/03/16 11/03/16 05:35 05:35 WBC 3.9 L RBC 4.10 Hgb 12.3 Hct 37.1 MCV 90.7 MCHC 33.2 RDW 12.2 Plt Count 229 MPV 8.5 Neutrophils % 51.3 Lymphocytes % 33.1 Monocytes % 13.2 H Eosinophils % 1.8 Basophils % 0.6 Sodium 141 Potassium 4.0 Chloride 104 Carbon Dioxide 27 Anion Gap 10 BUN 15 Creatinine 0.9 Creat Clearance w eGFR > 60 Random Glucose 80 Calcium 8.9 Total Bilirubin 0.7 AST 28 ALT 25 Alkaline Phosphatase 67 Total Protein 6.9 Albumin 3.5 Active Medications Generic Name Dose Route Start Last Admin Trade Name Freq PRN Reason Stop Dose Admin Acetaminophen 650 mg 10/31/16 16:44 Tylenol - PO Q6H PRN FEVER OR PAIN Aspirin 81 mg 11/01/16 10:00 11/02/16 10:33 Ecotrin - PO 81 mg DAILY RADHA Administration Atorvastatin Calcium 10 mg 11/02/16 22:00 11/02/16 22:45 Lipitor - PO 10 mg HS RADHA Administration Carvedilol 12.5 mg 11/02/16 10:00 11/02/16 22:44 Coreg - PO 12.5 mg BID RADHA Administration Docusate Sodium 100 mg 10/31/16 22:00 11/02/16 22:45 Colace - PO 100 mg BID RADHA Administration Valsartan 320 mg 11/03/16 11:15 Diovan - PO DAILY [facility] ASSESSMENT/PLAN: Patient is a 55 year old male with a significant past medical history of hypertension and hyperlipidemia. He presented to the ED on 10/31/2016 with complaints of acute non radiating chest pain (rated pain as 10/10) that lasted for approximately one hour and that worsened with exertion and with deep inspiration. He also reports shortness of breath with nausea and vomiting that occurred with the chest pain. He denies any palpitations. He also has a history of medication non compliance. He reports not taking his prescribed cardiac medications for apx 8 months. In 2010 he was admitted to [facility] with similar presenting chest pain and was reported to have had a negative stress test. Denies any chest pain or discomfort. Cardiology: Chest Pain Syndrome - resolved Assessment/Plan: Continue to monitor on tele, currently in sinus rhythm He is on daily ASA 81mg and Lipitor 10mg Troponins x 3 negative For stress echo today, pending read Cardiology following Hypertensive urgency - improving/still hypertensive Assessment/Plan: Patient admits to non compliance with cardiac meds for a few months Improvement of BP but but still hypertensive. Manager Case Management increased Diovan to 320 mg daily Hyperlipidemia - chronic Assessment/Plan: Lipid panel reviewed, on Lipitor 10mg Pulmonary: Shortness of breath - resolved Assessment/Plan: Tolerating room air, oxygen saturation on room air high 90s Chest xray 10/31/16 with no acute pathology GI: Nausea/Vomiting - resolved Assessment/Plan: Tolerating his meals, abdomen non distended Denies constipation, pain or tenderness F.E.N. Fluids: tolerating PO, no IVF Electrolytes: within normal limits Nutrition: Low sodium Prophylaxis: GI: colace BID DVT: ambulatory patient, low risk Disposition: Stable for discharge today. Full Code. Visit type - Emergency Visit Emergency Visit: Yes ED Registration Date: 10/31/16 Care time: The patient presented to the Emergency Department on the above date and was hospitalized for further evaluation of their emergent condition. - New Patient This patient is new to me today: No - Critical Care Critical Care patient: No - Discharge Referral Referred to [facility] Med P.C.: No
[2016-11-03] MEDS: DOCUSATE SODIUM 100 MG CAPSULE (FP) PO SCH (15:28)
[2016-11-03] MEDS: CARVEDILOL 12.5 MG TABLET (FP) PO SCH (15:28)
[2016-11-03] MEDS: ASPIRIN COATED 81 MG TABLET.EC PO SCH (15:28)
--- NOTE | 2016-11-03 17:26 | DS ---
Physical Exam: SUBJECTIVE: Patient seen and examined. Patient seen and examined. He denies any chest pain or shortness of breath. No overnight events. Remains hypertensive. Medications titrated by paper sorter. OBJECTIVE: Vital Signs Period Temp Pulse Resp BP Sys/Mclaughlin Pulse Ox Last 24 Hr 97.4 F-97.9 F 60-87 18-20 141-158/79-96 97-97 PHYSICAL EXAM GENERAL: The patient is awake, alert, and fully oriented, in no acute distress. HEAD: Normal with no signs of trauma. EYES: PERRL, extraocular movements intact, sclera anicteric, conjunctiva clear. No ptosis. ENT: Ears normal, nares patent, oropharynx clear without exudates, moist mucous membranes. NECK: Trachea midline, full range of motion, supple. LUNGS: Breath sounds equal, clear to auscultation bilaterally, no wheezes, no crackles, no accessory muscle use. HEART: Sinus rhythm 80s on records management coordinator ABDOMEN: Soft, nontender, nondistended, normoactive bowel sounds, no guarding, no rebound, no hepatosplenomegaly, no masses. EXTREMITIES: 2+ pulses, warm, well-perfused, no edema. NEUROLOGICAL: Normal speech, gait not observed. PSYCH: Normal mood, normal affect. SKIN: Warm, dry, normal turgor, no rashes or lesions noted LABS Laboratory Results - last 24 hr 11/03/16 11/03/16 05:35 05:35 WBC 3.9 L RBC 4.10 Hgb 12.3 Hct 37.1 MCV 90.7 MCHC 33.2 RDW 12.2 Plt Count 229 MPV 8.5 Neutrophils % 51.3 Lymphocytes % 33.1 Monocytes % 13.2 H Eosinophils % 1.8 Basophils % 0.6 Sodium 141 Potassium 4.0 Chloride 104 Carbon Dioxide 27 Anion Gap 10 BUN 15 Creatinine 0.9 Creat Clearance w eGFR > 60 Random Glucose 80 Calcium 8.9 Total Bilirubin 0.7 AST 28 ALT 25 Alkaline Phosphatase 67 Total Protein 6.9 Albumin 3.5 HOSPITAL COURSE: Date of Admission:10/31/16 Date of Discharge: 11/03/16 ASSESSMENT/PLAN: Patient is a 55 year old male with a significant past medical history of hypertension and hyperlipidemia. He presented to the ED on 10/31/2016 with complaints of acute non radiating chest pain (rated pain as 10/10) that lasted for approximately one hour and that worsened with exertion and with deep inspiration. He also reports shortness of breath with nausea and vomiting that occurred with the chest pain. He denies any palpitations. He also has a history of medication non compliance. He reports not taking his prescribed cardiac medications for apx 8 months. In 2010 he was admitted to [facility] with similar presenting chest pain and was reported to have had a negative stress test. Denies any chest pain or discomfort. Cardiology: Chest Pain Syndrome - resolved Assessment/Plan: Continue to monitor on tele, currently in sinus rhythm He is on daily ASA 81mg and Lipitor 10mg Troponins x 3 negative For stress echo today, pending read Cardiology following Hypertensive urgency - improving/still hypertensive Assessment/Plan: Patient admits to non compliance with cardiac meds for a few months Improvement of BP but but still hypertensive. Atomic Process Engineer increased Diovan to 320 mg daily Hyperlipidemia - chronic Assessment/Plan: Lipid panel reviewed, on Lipitor 10mg Pulmonary: Shortness of breath - resolved Assessment/Plan: Tolerating room air, oxygen saturation on room air high 90s Chest xray 10/31/16 with no acute pathology GI: Nausea/Vomiting - resolved Assessment/Plan: Tolerating his meals, abdomen non distended Denies constipation, pain or tenderness F.E.N. Fluids: tolerating PO, no IVF Electrolytes: within normal limits Nutrition: Low sodium Prophylaxis: GI: colace BID DVT: ambulatory patient, low risk Disposition: Stable for discharge today with close cardiology follow-up. Full Code. Minutes to complete discharge: 40 Discharge Summary Reason For Visit: CHEST PAIN,HYPERTENSION Current Active Problems Chest pain (Acute) DVT prophylaxis (Acute) Hyperlipidemia (Acute) Hypertension (Acute) Hypertensive urgency (Acute) Noncompliance with medication regimen (Acute) Condition: Good - Instructions Diet, Activity, Other Instructions: Please take your medications as prescribed. You will need close follow up with your primary care physician and Atomic Process Engineer so that your blood pressure can be monitored closely. Please return to the ER if you experience any of the following: Chest Pain Chest discomfort Shortness of breath Referrals: Johan Schaefer MD [Staff Physician] - Yuly Jose [Primary Care Provider] - - Home Medications Comprehensive Discharge Medication List: Ambulatory Orders Aspirin Coated [Ecotrin -] 81 mg PO DAILY #30 tablet.ec 11/03/16 Atorvastatin Ca [Lipitor] 10 mg PO HS #30 tablet 11/03/16 Carvedilol [Coreg -] 12.5 mg PO BID #30 tablet 11/03/16 Valsartan [Diovan] 320 mg PO DAILY #30 tablet 11/03/16 This patient is new to me today: No Emergency Visit: Yes ED Registration Date: 10/31/16 Care time: The patient presented to the Emergency Department on the above date and was hospitalized for further evaluation of their emergent condition. Critical Care patient: No - Discharge Referral Referred to [facility] Med P.C.: No Physician Referral: Daniel Leos MD ([facility]), Lucita Cabrera MD ([facility])
[2016-11-03 18:22] VITALS: BP 124/81; PULSE 73; TEMP 97.5
--- NOTE | 2016-11-05 13:50 | EKG ---
Test Reason : Blood Pressure : / mmHG Vent. Rate : 089 BPM Atrial Rate : 089 BPM P-R Int : 146 ms QRS Dur : 086 ms QT Int : 372 ms P-R-T Axes : 061 064 058 degrees QTc Int : 452 ms NORMAL SINUS RHYTHM POSSIBLE LEFT ATRIAL ENLARGEMENT LEFT VENTRICULAR HYPERTROPHY ABNORMAL ECG WHEN COMPARED WITH ECG OF 25-MAR-2011 08:59, NONSPECIFIC T WAVE ABNORMALITY NOW EVIDENT IN LATERAL LEADS Confirmed by ALEXA YUNG, JOSE ROBERTO ([id number]) on 11/05/2016 1:49:58 PM Referred By: Confirmed By:JOSE ROBERTO LIU MD
== END 2016-11-03 18:32 | disposition home or self-care (01) ==
LOC: JER 11:23 → JERBED 12:58 → J4W 15:54
PROVIDERS: ADMIT Internal Medicine; ATTEND Nurse Practitioner Family
DX: R07.89 Other chest pain (principal); I10 Essential (primary) hypertension; E78.5 Hyperlipidemia, unspecified; Z91.14 Patient's other noncompliance with medication regimen; R11.2 Nausea with vomiting, unspecified
CPT/HCPCS: 36415; 71010-TC; 80053; 80061; 82550; 82553; 83036; 83721; 83735; 83880; 84443; 84484; 85025; 93005; 93010; 93351; 99285-25; G0378